=== PATIENT | male | born 1985 | race Caucasian/White ===

== ENCOUNTER 2023-02-26 09:51 | Emergency (ER) | payer OTHER ==
[~2023-02-26] VITALS: Ht 198.1 cm; Wt 95.2 kg
[2023-02-26 11:45] VITALS: BP 138/86
--- NOTE | 2023-02-28 00:05 | EKG ---
[facility] [address] [place] [address] Signed Atrial fibrillation with premature ventricular or aberrantly conducted complexes Abnormal ECG No previous ECGs available Confirmed by Caitlin Holt MD () on 02/28/2023 12:05:04 AM Electronically Signed By: CAITLIN HOLT MD 02/28/23 0005 PATIENT NAME: RENEA BEACH Electrocardiogram DATE OF : 81 PHYSICIAN: CAITLIN HOLT MD REPORT #: [id number] REPORT IS CONFIDENTIAL AND NOT TO BE RELEASED WITHOUT AUTHORIZATION
--- NOTE | 2023-02-28 00:06 | EKG ---
[facility] [address] [facility] [place] [address] Signed Normal sinus rhythm Normal ECG When compared with ECG of 26-FEB-2023, Atrial fibrillation is no longer present Confirmed by Caitlin Holt MD () on 02/28/2023 12:06:24 AM Electronically Signed By: CAITLIN HOLT MD 02/28/23 0006 PATIENT NAME: RENEA BEACH Electrocardiogram DATE OF : 81 PHYSICIAN: CAITLIN HOLT MD REPORT #: [id number] REPORT IS CONFIDENTIAL AND NOT TO BE RELEASED WITHOUT AUTHORIZATION
== END 2023-02-26 11:45 | disposition home or self-care (01) ==
LOC: ED 09:51
DX: I48.91 Unspecified atrial fibrillation (principal); I10 Essential (primary) hypertension
CPT/HCPCS: 36415; 80053; 83735; 84484; 85025; 92960; 93005; 93010; 99152; 99153; 99285 25